=== PATIENT | female | born 1950 | race Caucasian/White ===

== ENCOUNTER 2021-12-29 10:32 | Inpatient (IN) | payer MEDICARE, OTHER ==
[~2021-12-29] VITALS: Ht 152.4 cm; Wt 55.6 kg
[2021-12-29 11:15] LABS: HEMOGLOBIN 12.7 gm/dl (12.3-15.3); RED BLOOD COUNT 4.27 M/UL (4.00-5.10); WHITE BLOOD COUNT 26.6 K/UL (4.5-11.0)
[2021-12-29 11:36] LABS: BUN/CREATININE RATIO 25 (0-10)
[2021-12-29] MEDS ORDERED: PROAIR DIGIHAL90 MCG INH (15:48)
[2021-12-29] MEDS ORDERED: LISINOPRIL5 MG PO (15:49)
[2021-12-29] MEDS ORDERED: ATORVASTATIN CA40 MG PO (15:49)
[2021-12-29] MEDS ORDERED: ASPIRIN EC81 MG PO (15:49)
[2021-12-29] MEDS ORDERED: METOPROLOL SUCC25 MG PO (15:50)
[2021-12-29] MEDS ORDERED: METFORMIN HCL500 MG PO (15:51)
[2021-12-29] MEDS ORDERED: DAILY VALUE1 EACH PO (15:52)
[2021-12-29] MEDS ORDERED: NITROGLYCERIN0.4 MG SL (15:55)
[2021-12-29] MEDS ORDERED: POLYETHYLENE GL17 GM PO (15:57)
[2021-12-29] MEDS ORDERED: BRILINTA90 MG PO (15:58)
[2021-12-29] MEDS ORDERED: PROTONIX40 MG PO (15:58)
[2021-12-30 03:02] LABS: HEMOGLOBIN 10.6 gm/dl (12.3-15.3); RED BLOOD COUNT 3.7 M/UL (4.00-5.10); WHITE BLOOD COUNT 15.2 K/UL (4.5-11.0)
[2021-12-30 03:28] LABS: BUN/CREATININE RATIO 39 (0-10)
[2021-12-31 06:19] LABS: HEMOGLOBIN 10.3 gm/dl (12.3-15.3); RED BLOOD COUNT 3.48 M/UL (4.00-5.10); WHITE BLOOD COUNT 13.5 K/UL (4.5-11.0)
[2021-12-31 07:07] LABS: BUN/CREATININE RATIO 44 (0-10)
[2022-01-01 03:51] LABS: HEMOGLOBIN 10.6 gm/dl (12.3-15.3); RED BLOOD COUNT 3.64 M/UL (4.00-5.10); WHITE BLOOD COUNT 10.9 K/UL (4.5-11.0)
[2022-01-01 03:52] LABS: BUN/CREATININE RATIO 40 (0-10)
[2022-01-02 05:14] LABS: BUN/CREATININE RATIO 41 (0-10)
[2022-01-03 03:57] LABS: BUN/CREATININE RATIO 53 (0-10)
[2022-01-04 04:02] LABS: HEMOGLOBIN 11.4 gm/dl (12.3-15.3); RED BLOOD COUNT 3.86 M/UL (4.00-5.10)
[2022-01-04 04:08] LABS: WHITE BLOOD COUNT 13.9 K/UL (4.5-11.0)
[2022-01-04 04:21] LABS: BUN/CREATININE RATIO 49 (0-10)
[2022-01-05 03:38] LABS: BUN/CREATININE RATIO 37 (0-10)
[2022-01-06 06:14] LABS: HEMOGLOBIN 11.7 gm/dl (12.3-15.3); RED BLOOD COUNT 4.02 M/UL (4.00-5.10)
[2022-01-06 07:14] LABS: BUN/CREATININE RATIO 51 (0-10)
== END 2022-01-06 13:47 | disposition home health service (06) | DRG 871 ==
LOC: ER1 10:32 → PROG CARE 15:55 → CDU 15:55 → PROG CARE 19:06
PROVIDERS: Internal Medicine; Physician Assistant; Student in an Organized Health Care Education/Training Program; ADMIT Internal Medicine
PROC: 8E0ZXY6 Isolation (ICD-10-PCS; principal; 2021-12-29)
PROC: 3E0333Z Introduction of Anti-inflammatory into Peripheral Vein, Percutaneous Approach (ICD-10-PCS; 2021-12-29)
PROC: 5A0955A Assistance with Respiratory Ventilation, Greater than 96 Consecutive Hours, High Flow/Velocity Cannula (ICD-10-PCS; 2021-12-29)
PROC: XW033H5 Introduction of Tocilizumab into Peripheral Vein, Percutaneous Approach, New Technology Group 5 (ICD-10-PCS; 2021-12-31)
DX: A41.89 Other specified sepsis (principal); J12.82 Pneumonia due to coronavirus disease 2019; J96.21 Acute and chronic respiratory failure with hypoxia; U07.1 COVID-19; I21.A1 Myocardial infarction type 2; J15.9 Unspecified bacterial pneumonia; J44.0 Chronic obstructive pulmonary disease with (acute) lower respiratory infection; I50.22 Chronic systolic (congestive) heart failure; J44.1 Chronic obstructive pulmonary disease with (acute) exacerbation; R65.20 Severe sepsis without septic shock; I25.10 Atherosclerotic heart disease of native coronary artery without angina pectoris; I11.0 Hypertensive heart disease with heart failure; E78.5 Hyperlipidemia, unspecified; E11.65 Type 2 diabetes mellitus with hyperglycemia; Z87.891 Personal history of nicotine dependence; Z88.0 Allergy status to penicillin; Z88.8 Allergy status to other drugs, medicaments and biological substances; Z95.5 Presence of coronary angioplasty implant and graft; Z79.82 Long term (current) use of aspirin; Z79.4 Long term (current) use of insulin; Z79.899 Other long term (current) drug therapy; Z23 Encounter for immunization; I25.2 Old myocardial infarction; Z99.81 Dependence on supplemental oxygen
CPT/HCPCS: 36415; 36600; 71045; 80048; 80053; 80202; 81001; 82550; 82553; 82803; 82962; 83036; 83605; 83615; 83735; 83880; 84132; 84484; 85025; 85379; 86140; 87040; 87081; 93005; 93970; 94640; 94664; 94760; 96374; 96375; 97162; 97530-GP-CQ; 99285; A6212; J1100; J1650; J1940; J1956; J2405; J3262; J3370; J7070; M0249; Q0249; Q9967; U0002